=== PATIENT | male | born 1960 | race Caucasian/White ===

== ENCOUNTER 2016-04-08 13:38 | Emergency (ER) | payer MEDICAID ==
[~2016-04-08] VITALS: Ht 167.6 cm; Wt 87.5 kg
[~2016-04-08 13:38] MED LIST: IBUP-1542 PO
[2016-04-08 13:58] VITALS: Ht 167.6 cm; Wt 87.5 kg
[2016-04-08] MEDS ORDERED: FAMOTIDINE 20 MG TAB PO STA (18:16)
[2016-04-08] MEDS ORDERED: BELLADONNA/PHENOBARBITAL TAB PO STA (18:16)
[2016-04-08] MEDS ORDERED: LIDOCAINE/MYLANTA 40 ML BTL PO STA (18:16)
[2016-04-08] MEDS ORDERED: KETOROLAC 15 MG INJ IM STA (18:16)
[2016-04-08 19:10] VITALS: BP 145/88; PULSE 58; RESP 17
[2016-04-08 19:23] LABS: ADD SCAN DIFF NO
[2016-04-08 19:25] LABS: BASOPHIL # 0.1 10^3/ul (0.0-0.1); BASOPHILS % 0.6 % (0.0-2.0); EOSINOPHILS # 0.1 10^3/ul (0.0-0.5); EOSINOPHILS % 1.5 % (0.0-7.0); HEMATOCRIT 42.5 % (42.0-52.0); HEMOGLOBIN 14.6 g/dl (14.0-18.0); LYMPHOCYTES # 2.5 10^3/ul (0.8-2.9); LYMPHOCYTES % 30.6 % (15.0-51.0); MEAN CORPUSCULAR HEMOGLOBIN 30.3 pg (29.0-33.0); MEAN CORPUSCULAR HGB CONC 34.4 g/dl (32.0-37.0); MEAN CORPUSCULAR VOLUME 88.2 fl (82.0-101.0); MEAN PLATELET VOLUME 10.4 fl (7.4-10.4); MONOCYTE # 0.8 10^3/ul (0.3-0.9); MONOCYTES % 9.7 % (0.0-11.0); NEUTROPHIL # 4.6 10^3/ul (1.6-7.5); NEUTROPHILS % 57.1 % (39.0-77.0); PLATELET COUNT 209 10^3/UL (140-415); RED BLOOD COUNT 4.82 10^6/ul (4.70-6.10); RED CELL DISTRIBUTION WIDTH 12.2 % (11.5-14.5)
[2016-04-08 19:31] LABS: ADD UMIC NO; URINE BILIRUBIN (Dip) NEGATIVE (NEGATIVE); URINE BLOOD (Dip) NEGATIVE (NEGATIVE); URINE COLOR LT. YELLOW (YELLOW); URINE GLUCOSE (Dip) NEGATIVE (NEGATIVE); URINE KETONES (Dip) NEGATIVE (NEGATIVE); URINE LEUKOCYTE ESTERASE (Dip) NEGATIVE (NEGATIVE); URINE NITRITE (Dip) NEGATIVE (NEGATIVE); URINE TOTAL PROTEIN (Dip) NEGATIVE (NEGATIVE); URINE UROBILINOGEN (Dip) 0.2 E.U./dL (0.1-1.0)
[2016-04-08 19:37] LABS: ALBUMIN 4.2 g/dl (3.3-4.9)
[2016-04-08 19:38] LABS: POTASSIUM 3.6 mmol/L (3.5-5.1)
[2016-04-08 19:40] LABS: ALBUMIN/GLOBULIN RATIO 1.44; BILIRUBIN,INDIRECT 0.1 mg/dl (0-1.1); BILIRUBIN,TOTAL 0.1 mg/dl (0.2-1.3); CREATININE 0.93 mg/dl (0.61-1.24); TOTAL PROTEIN 7.1 g/dl (6.1-8.1)
[2016-04-08 19:41] LABS: CALCIUM 8.9 mg/dl (8.4-10.2)
[2016-04-08] MEDS ORDERED: FAMO40TA52 PO (19:48)
[2016-04-08] MEDS ORDERED: NAPR-260 PO (19:48)
[2016-04-08] MEDS ORDERED: MAG355OR14 PO (19:48)
--- NOTE | 2016-04-08 19:54 | ERD ---
ER Documentation Chief Complaint Date/Time DATE: 04/08/16 TIME: 19:51 Chief Complaint RLQ pain X 1.5 months, worst today. HPI 55-year-old man complains of hypogastric abdominal pain 1-2 months, worse to the right lower quadrant compared to the left. He states the pain is chronic and daily denies precipitating or alleviating factors. He denies vomiting or diarrhea, no blood per rectum or melena, no weight loss, no complaints of chest pain or shortness of breath. Patient denies recent travel or antibiotic use. ROS All systems reviewed and are negative except as per history of present illness. Medications Home Meds Active Scripts Naproxen* (Naprosyn*) 500 Mg Tablet, 500 MG PO BID Y for PAIN AND/OR INFLAMMATION, #30 TAB Prov:TAMIKO VILLALOBOS MD 04/08/16 Mag Hydrox/Al Hydrox/Simeth (Maalox Advanced Suspension) 355 Ml Oral.susp, 2 TSP PO TID, #24 OZ Prov:TAMIKO VILLALOBOS MD 04/08/16 Famotidine* (Famotidine*) 40 Mg Tablet, 40 MG PO HS, #30 TAB Prov:TAMIKO VILLALOBOS MD 04/08/16 Discontinued Scripts Ibuprofen* (Motrin*) 600 Mg Tab, 600 MG PO Q6, #30 TAB Prov:KODI CHILD NP 04/28/15 Allergies Allergies: Coded Allergies: No Known Allergy (Unverified , 04/08/16) PMhx/Soc None Medical and Surgical Hx: pt denies Surgical Hx History of Surgery: No Hx Neurological Disorder: No Hx Respiratory Disorders: Yes (previous hospitalization for pneumonia) Hx Cardiac Disorders: No Hx Psychiatric Problems: No Hx Miscellaneous Medical Probl: No Hx Alcohol Use: Yes (1 beer and 1 tequilla each evening) Hx Substance Use: No Hx Tobacco Use: Yes (quit 25 years ago) Smoking Status: Never smoker FmHx Family History: No coronary disease Physical Exam Vitals Vital Signs Date Time Temp Pulse Resp B/P Pulse Ox O2 Delivery O2 Flow Rate FiO2 04/08/16 19:10 58 17 145/88 100 Room Air 04/08/16 13:58 98.6 57 18 147/81 100 Physical Exam GENERAL: Well-developed, well-nourished, well-hydrated, in no apparent distress , looks nontoxic in appearance HEENT: Moist mucous membranes, pink conjunctiva, no cervical spine tenderness or step-off deformities, no goiter, no jaundice or icterus, extraocular movements intact without pain. No submandibular induration, and no pharyngeal erythema NEURO: Alert and oriented 3, cranial nerves II through XII intact bilaterally, pupils equal round reactive to light, no focal deficits or facial asymmetry, sensation intact distally Strength 5/5 in upper and lower extremities bilaterally CARDIAC: Regular rate and rhythm, no murmurs rubs or gallops LUNGS: Clear bilaterally no wheezing crackles or stridor ABDOMEN: Soft nontender, no guarding, no rigidity, no rebound, no psoas sign no obturator sign. Normoactive bowel sounds SKIN: Warm and dry to touch, no abrasions, contusions, or hematomas, no lacerations, no ecchymosis, no target lesions, and without ulcers EXTREMITIES: No clubbing cyanosis or edema, calves are bilaterally symmetrical, no Homans sign, no popliteal cord sign. Distal pulses equal and bilateral PSYCH: Normal affect without agitation or irritability Result Diagram: 04/08/16183604/08/161836 Results 24 hrs Laboratory Tests Test 04/08/16 18:37 04/08/16 19:00 Alanine Aminotransferase (ALT/SGPT) 27IU/L Albumin 4.2g/dl Albumin/Globulin Ratio 1.44 Alkaline Phosphatase 79IU/L Anion Gap 19 Aspartate Amino Transf (AST/SGOT) 29IU/L Basophils # 0.110^3/ul Basophils % 0.6% Blood Urea Nitrogen 19mg/dl Calcium Level 8.9mg/dl Carbon Dioxide Level 24mmol/L Chloride Level 103mmol/L Creatinine 0.93mg/dl Direct Bilirubin 0.00mg/dl Eosinophils # 0.110^3/ul Eosinophils % 1.5% Globulin 2.90g/dl Glucose Level 112mg/dl Hematocrit 42.5% Hemoglobin 14.6g/dl Indirect Bilirubin 0.1mg/dl Lipase 71U/L Lymphocytes # 2.510^3/ul Lymphocytes % 30.6% Mean Corpuscular Hemoglobin 30.3pg Mean Corpuscular Hemoglobin Concent 34.4g/dl Mean Corpuscular Volume 88.2fl Mean Platelet Volume 10.4fl Monocytes # 0.810^3/ul Monocytes % 9.7% Neutrophils # 4.610^3/ul Neutrophils % 57.1% Nucleated Red Blood Cells # 0.010^3/ul Nucleated Red Blood Cells % 0.0/100WBC Platelet Count 99587^3/UL Potassium Level 3.6mmol/L Red Blood Count 4.8210^6/ul Red Cell Distribution Width 12.2% Sodium Level 142mmol/L Total Bilirubin 0.1mg/dl Total Protein 7.1g/dl White Blood Count 8.010^3/ul Urine Bilirubin NEGATIVE Urine Clarity CLEAR Urine Color LT. YELLOW Urine Glucose NEGATIVE% Urine Hemoglobin NEGATIVE Urine Ketones NEGATIVE Urine Leukocyte Esterase NEGATIVE Urine Nitrite NEGATIVE Urine Specific [place] <=1.005 Urine Total Protein NEGATIVE Urine Urobilinogen 0.2 E.U./dL Urine pH 6.0 Current Medications Medications (Trade) Dose Ordered Sig/Vickey Route PRN Reason Start Time Stop Time Status Last Admin Dose Admin Famotidine (Pepcid) 40 mg ONCE STAT PO 04/08/16 18:16 04/08/16 18:18 DC 04/08/16 19:00 Miscellaneous Medication (Gi Cocktail (2)) 40 ml ONCE STAT PO 04/08/16 18:16 04/08/16 18:18 DC 04/08/16 19:00 Belladonna/ Phenobarbital () 2 tab ONCE STAT PO 04/08/16 18:16 04/08/16 18:18 DC 04/08/16 19:00 Ketorolac Tromethamine (Toradol) 30 mg ONCE STAT IM 04/08/16 18:16 04/08/16 18:18 DC Procedures/MDM Patient was given famotidine 40 mg p.o., GI cocktail 50 cc p.o., and Toradol 30 mg IV 1. CBC and electrolytes were normal, liver function tests were normal, troponin was negative, urine analysis was negative for infection. Lipase was normal. I repeated his abdominal examination after medications were administered and just prior to discharge. His belly remains soft, there is no hepatosplenomegaly , no rigidity or tenderness on my examination. I also recommended the patient return in 8-12 hours for repeat abdominal exam and reevaluation, or earlier if he develops fever, vomiting, diarrhea, or worsening pain. He understood these instructions. Differential diagnoses considered, included but not limited to acute coronary syndrome, pulmonary embolism, aortic dissection, abdominal aortic aneurysm, sepsis, stroke, meningitis, encephalitis, pneumonia, appendicitis, cholecystitis , bowel obstruction, pyelonephritis, nephrolithiasis, cystitis, as well as metabolic, hematologic, and electrolyte abnormalities. As well as abscess, cellulitis, fractures, and dislocations. Patient feels much better at this time, and vital signs are normal, symptoms have improved. I did give strict instructions to return to the ED if symptoms continue or worsen, patient will return here in 8-12 hours and then if normal will follow-up with primary care physician. Patient understood instructions and agreed to plan. Departure Diagnosis: Primary Impression: Abdominal pain Abdominal location: right lower quadrant Qualified Code: R10.31 - Right lower quadrant abdominal pain Condition: Good Patient Instructions: Abdominal Pain TAMIKO VILLALOBOS MD Apr 08, 2016 19:54
== END 2016-04-08 20:02 | disposition home or self-care (01) ==
LOC: E/R 13:38
DX: R10.31 Right lower quadrant pain (principal); Z87.891 Personal history of nicotine dependence
CPT/HCPCS: 36415; 80053; 81003; 83690; 85025; J1885; Z7502; Z7610; 99283